=== PATIENT | female | born 1950 | race Caucasian/White ===

== ENCOUNTER → 2017-09-04 | Outpatient (CLI) | payer MEDICARE, OTHER ==
[~2017-09-04] MED LIST: ATORVASTATIN CA40 MG PO; CALCIUM 600 +1 EAC1 PO; CALCIUM CITRAT1 EAC7 PO; DYAZIDE 37.5-21 EACH PO; HYDROXYZINE HCL50 MG; LEVAQUIN 500 M500 M1 PO; LEVOTHYROXIN0.075 MG PO; LEVOXYL100 MCG; LO-DOSE ASPIRIN81 M1 PO; MULTIVITAMINS1 EAC7; NORCO 5-325 TA1 EACH PO; PREDNISONE10 MG PO; PREDNISONE50 MG PO; RANITIDINE HCL300 M1; TESSALON PERLE100 MG PO; UNICOMPLEX M TA1 TA1 PO; VITAMIN D1000 UNI1 PO; XOPENEX HF1 UDINHALE IH; ZOCOR 20 MG TAB20 M1; ZPAK PO; [UNRECOGNIZED DRUG - CODE] PO
== END ==
LOC: M.RAD 12:33
DX: D24.2 Benign neoplasm of left breast (principal); J44.9 Chronic obstructive pulmonary disease, unspecified; I12.9 Hypertensive chronic kidney disease with stage 1 through stage 4 chronic kidney disease, or unspecified chronic kidney disease; N18.3 Chronic kidney disease, stage 3 (moderate); E89.0 Postprocedural hypothyroidism; I25.10 Atherosclerotic heart disease of native coronary artery without angina pectoris; E78.5 Hyperlipidemia, unspecified; J45.909 Unspecified asthma, uncomplicated; Z87.891 Personal history of nicotine dependence

== ENCOUNTER → 2018-03-25 | Outpatient (CLI) | payer MEDICARE, OTHER | LOC: M.RAD 03-18 10:00 → M.ULTRA 03-18 10:30 → M.RAD 09:57 | DX: N63.21 Unspecified lump in the left breast, upper outer quadrant (principal); N60.92 Unspecified benign mammary dysplasia of left breast; R92.2 Inconclusive mammogram; I10 Essential (primary) hypertension; J44.9 Chronic obstructive pulmonary disease, unspecified ==

== ENCOUNTER 2018-06-24 12:48 | Emergency (ER) | payer MEDICARE, OTHER ==
[~2018-06-24] VITALS: Ht 154.9 cm; Wt 77.1 kg
[2018-06-24] MEDS ORDERED: FLORASTOR250 MG PO (13:10)
[2018-06-24 13:47] LABS: ABSOLUTE BASOPHILS 0.1 thou/uL (0.0-0.2); ABSOLUTE EOSINOPHILS 0.1 thou/uL (0.0-0.7); ABSOLUTE LYMPHOCYTES 1.8 thou/uL (0.8-5.3); ABSOLUTE MONOCYTES 0.4 thou/uL (0.0-1.2); ABSOLUTE NEUTROPHILS 5.6 thou/uL (1.6-8.1); BASOPHILS 0.7 %; EOSINOPHILS 0.7 %; HEMATOCRIT 40.3 % (37.0-47.0); HEMOGLOBIN 13.6 gm/dL (12.0-15.0); LYMPHOCYTES 22.9 %; MCH 29.8 pg (26.0-34.0); MCHC 33.7 g/dL (28.0-37.0); MCV 88.5 fL (80.0-100.0); MONOCYTES 4.9 %; MPV 7.5 fl. (7.2-11.1); NUCLEATED RBCS 0 /100WBC; PLATELET COUNT* 312 thou/uL (150-400); POLYS 70.8 %; RBC 4.56 mil/uL (4.20-5.00); RDW-CV 15.2 % (10.5-14.5); WBC 7.8 thou/uL (4.0-11.0)
[2018-06-24 13:52] LABS: POTASSIUM 3.3 mmol/L (3.5-5.1)
[2018-06-24 13:55] LABS: APTT 34.1 Seconds (25.0-31.3); INR 0.9; PROTIME 9.5 Seconds (9.20-11.50)
[2018-06-24] MEDS ORDERED: ULTRAM50 MG PO (14:30)
[2018-06-24] MEDS ORDERED: BACTRIM DS TAB1 EAC1 PO (14:30)
[2018-06-24 14:39] VITALS: BP 128/54
[2018-06-24 14:49] LABS: ESR (SEDRATE) 39 mm/hr (0-30)
== END 2018-06-24 14:39 | disposition home or self-care (01) ==
LOC: M.ERS 12:48
PROVIDERS: Nurse Practitioner
DX: L03.116 Cellulitis of left lower limb (principal); I10 Essential (primary) hypertension; J44.9 Chronic obstructive pulmonary disease, unspecified; E03.9 Hypothyroidism, unspecified; Z90.49 Acquired absence of other specified parts of digestive tract; Z90.710 Acquired absence of both cervix and uterus; Z87.891 Personal history of nicotine dependence; Z88.0 Allergy status to penicillin; Z88.5 Allergy status to narcotic agent; Z88.4 Allergy status to anesthetic agent; Z88.8 Allergy status to other drugs, medicaments and biological substances

== ENCOUNTER → 2018-07-22 | Outpatient (CLI) | payer MEDICARE, OTHER ==
[~2018-07-22] MED LIST changes: +BACTRIM DS TAB1 EAC1 PO; +FLORASTOR250 MG PO; +ULTRAM50 MG PO
== END ==
LOC: M.ULTRA 12:25
DX: N64.4 Mastodynia (principal)

== ENCOUNTER → 2019-03-30 | Outpatient (CLI) | payer MEDICARE, OTHER | LOC: M.RAD 10:59 | DX: Z12.31 Encounter for screening mammogram for malignant neoplasm of breast (principal) ==

== ENCOUNTER → 2019-04-01 | Outpatient (CLI) | payer MEDICARE, OTHER | LOC: M.ULTRA 13:25 | DX: N60.01 Solitary cyst of right breast (principal) ==

== ENCOUNTER → 2019-07-02 | Outpatient (CLI) | payer MEDICARE, OTHER | LOC: M.ULTRA 10:14 | DX: N63.21 Unspecified lump in the left breast, upper outer quadrant (principal) ==

== ENCOUNTER → 2020-04-03 | Outpatient (CLI) | payer MEDICARE, OTHER | LOC: M.RAD 10:00 | PROVIDERS: ATTEND Family Medicine | DX: Z12.31 Encounter for screening mammogram for malignant neoplasm of breast (principal) ==

== ENCOUNTER 2021-03-13 13:03 | Emergency (ER) | payer MEDICARE, OTHER ==
[~2021-03-13] VITALS: Ht 154.9 cm; Wt 81.7 kg
[2021-03-13 15:13] LABS: ABSOLUTE BASOPHILS 0.1 thou/uL (0.0-0.2); ABSOLUTE LYMPHOCYTES 1.8 thou/uL (0.8-5.3); ABSOLUTE MONOCYTES 0.5 thou/uL (0.0-1.2); ABSOLUTE NEUTROPHILS 5.4 thou/uL (1.6-8.1); BASOPHILS 0.8 %; EOSINOPHILS 0.6 %; HEMATOCRIT 41.7 % (37.0-47.0); HEMOGLOBIN 13.9 gm/dL (12.0-15.0); LYMPHOCYTES 22.6 %; MCH 29.9 pg (26.0-34.0); MCHC 33.3 g/dL (28.0-37.0); MCV 89.9 fL (80.0-100.0); MONOCYTES 6.8 %; MPV 7.4 fl. (7.2-11.1); NUCLEATED RBCS 0 /100WBC; PLATELET COUNT* 305 thou/uL (150-400); POLYS 69.2 %; RBC 4.64 mil/uL (4.20-5.00); RDW-CV 14.7 % (10.5-14.5); WBC 7.8 thou/uL (4.0-11.0)
[2021-03-13 15:25] LABS: CALCIUM 8.9 mg/dL (8.5-10.1); POTASSIUM 3.1 mmol/L (3.5-5.1)
[2021-03-13 16:21] LABS: ESR (SEDRATE) 45 mm/hr (0-30)
[2021-03-13] MEDS ORDERED: PREDNISONE 10 M10 MG PO (16:54)
[2021-03-13] MEDS ORDERED: INDOMETHACIN 5050 M1 PO (16:54)
[2021-03-13 17:37] VITALS: BP 137/90
== END 2021-03-13 17:38 | disposition home or self-care (01) ==
LOC: M.ERS 13:03
PROVIDERS: Nurse Practitioner Family
DX: M10.072 Idiopathic gout, left ankle and foot (principal); I10 Essential (primary) hypertension; Z90.89 Acquired absence of other organs; Z90.49 Acquired absence of other specified parts of digestive tract; Z90.710 Acquired absence of both cervix and uterus; E03.9 Hypothyroidism, unspecified; Z98.51 Tubal ligation status; J44.9 Chronic obstructive pulmonary disease, unspecified; Z79.899 Other long term (current) drug therapy; Z87.891 Personal history of nicotine dependence; Z88.5 Allergy status to narcotic agent; Z88.0 Allergy status to penicillin; Z88.6 Allergy status to analgesic agent

== ENCOUNTER → 2021-05-01 | Outpatient (CLI) | payer MEDICARE, OTHER ==
[~2021-05-01] MED LIST changes: +INDOMETHACIN 5050 M1 PO; +PREDNISONE 10 M10 MG PO
== END ==
LOC: M.RAD 13:00
PROVIDERS: ATTEND Family Medicine
DX: Z12.31 Encounter for screening mammogram for malignant neoplasm of breast (principal); N63.10 Unspecified lump in the right breast, unspecified quadrant

== ENCOUNTER → 2021-05-09 | Outpatient (CLI) | payer MEDICARE, OTHER | LOC: M.ULTRA 11:00 | PROVIDERS: ATTEND Family Medicine | DX: N63.41 Unspecified lump in right breast, subareolar (principal); N63.10 Unspecified lump in the right breast, unspecified quadrant ==